=== PATIENT | female | born 1970 | race Caucasian/White ===

== ENCOUNTER 2018-12-03 18:06 | Emergency (ER) | payer OTHER ==
[~2018-12-03 18:06] MED LIST: CELEBREX200 MG PO; CHLOR PO; CLONIDINE PO; DESYREL50 MG PO; NEURONTIN600 MG PO; NORCO 10/325 TA1 TA1 PO; PRILOSEC20 MG PO; REGLAN10 MG PO; ROBAXIN-750750 MG PO; ZOLOFT25 MG PO
[2018-12-03] MEDS ORDERED: NEURONTIN800 MG PO (18:10)
[2018-12-03] MEDS ORDERED: HYDROCODON-ACE1 EAC2 PO (18:11)
[2018-12-03] MEDS ORDERED: CLARITIN 10 MG10 MG PO (18:12)
[2018-12-03] MEDS ORDERED: ATIVAN0.5 MG PO (18:12)
[2018-12-03] MEDS ORDERED: FLUTICASONE PRO16 GM NASAL (18:13)
[2018-12-03 18:38] LABS: BASOPHILS 0.4 % (0-2); EOSINOPHILS 2.2 % (0-7); HEMATOCRIT 45.8 % (36.0-48.0); HEMOGLOBIN 15.6 g/dL (12-16); IMMATURE GRANULOCYTES 0.1 % (0-5); LYMPHOCYTES 36.1 % (15-50); MCHC 34.1 g/dL (31.0-37.0); MCV 93.9 fL (80.0-100.0); MEAN PLATELET VOLUME 9.5 fL (7.4-10.4); MONOCYTES 8.2 % (2-11); RBC 4.88 10x6/uL (4.00-5.40); RDW 15.7 % (11.5-14.5); WBC 7.2 10x3/uL (4.8-10.8)
[2018-12-03 18:46] LABS: PLATELET COUNT 176 10x3/uL (130-400)
[2018-12-03 18:55] LABS: APTT 30.3 SECONDS (22.8-39.4); INR 1.1 (0.85-1.17); PROTIME 13.7 SECONDS (11.6-15.0)
[2018-12-03] MEDS ORDERED: STERAPRED DS 1010 MG PO (18:55)
[2018-12-03] MEDS ORDERED: LEVOFLOXACIN500 MG PO (18:55)
[2018-12-03 19:00] LABS: ALBUMIN 2.8 g/dL (3.4-5.0); ALKALINE PHOSPHATASE 115 U/L (46-116); ALT (SGPT) 18 U/L (10-68); BILIRUBIN - TOTAL 0.46 mg/dL (0.2-1.3); CALC OSMOLALITY 275 mosm/kg (275-300); CALCIUM 8.1 mg/dL (8.5-10.1); CARBON DIOXIDE 29.6 mmol/L (21.0-32.0); CHLORIDE - SERUM 101 mmol/L (98-107); CREATININE - SERUM 0.8 mg/dL (0.6-1.3); GLUCOSE 115 mg/dL (74-106); POTASSIUM - SERUM 3.1 mmol/L (3.5-5.1); PROTEIN - SERUM 6.6 g/dL (6.4-8.2); SODIUM 139 mmol/L (136-145); UREA NITROGEN 4 mg/dL (7-18); eGFR NON AFRICAN AMERICAN 81 mL/min (90-120)
[2018-12-03 19:31] LABS: CKMB 0.8 U/L (0.0-3.6); CREATINE KINASE 75 UL (21-215)
[2018-12-03 19:32] LABS: TROPONIN-I < 0.017 ng/mL (0.000-0.060)
== END 2018-12-03 20:03 | disposition home or self-care (01) ==
LOC: D.ER 18:06
PROVIDERS: Emergency Medicine
DX: J45.909 Unspecified asthma, uncomplicated (principal); J34.89 Other specified disorders of nose and nasal sinuses

== ENCOUNTER 2019-07-10 16:58 | Emergency (ER) | payer MEDICARE ==
[~2019-07-10] VITALS: Ht 188 cm; Wt 150.5 kg
[~2019-07-10 16:58] MED LIST changes: +ATIVAN0.5 MG PO; +CLARITIN 10 MG10 MG PO; +FLUTICASONE PRO16 GM NASAL; +HYDROCODON-ACE1 EAC2 PO; +LEVOFLOXACIN500 MG PO; +NEURONTIN800 MG PO; +STERAPRED DS 1010 MG PO
[2019-07-10 17:14] VITALS: Ht 188 cm; Wt 150.5 kg
[2019-07-10 18:37] VITALS: BP 139/86
[2019-07-10] MEDS ORDERED: TYLENOL #4 W/CO1 TAB PO (18:37)
[2019-07-10] MEDS ORDERED: CYCLOBENZAPRINE10 MG PO (22:21)
== END 2019-07-10 18:52 | disposition home or self-care (01) ==
LOC: D.ER 16:58
DX: R07.81 Pleurodynia (principal); R05 Cough